=== PATIENT | female | born 1980 | race Caucasian/White ===

== ENCOUNTER 2017-05-10 18:28 | Emergency (ER) | payer MEDICAID ==
[~2017-05-10] VITALS: Ht 167.6 cm; Wt 79.0 kg
[2017-05-10 18:31] VITALS: BP 137/79
[2017-05-10] MEDS ORDERED: DEXAMETHASONE 4 MG TABLET ONE (19:16)
[2017-05-10] MEDS ORDERED: DEXAMETHASONE 4 MG TABLET PO ONE (19:30)
== END 2017-05-10 19:29 | disposition home or self-care (01) ==
LOC: ED 19:20
DX: H66.92 Otitis media, unspecified, left ear (principal); J03.00 Acute streptococcal tonsillitis, unspecified
CPT/HCPCS: 99283

== ENCOUNTER 2019-04-11 20:50 | Emergency (ER) | payer MEDICAID ==
[~2019-04-11] VITALS: Ht 167.6 cm; Wt 69.0 kg
--- NOTE | 2019-04-11 21:14 | NUR ---
THIS IS A 39 YO FEMALE COMING IN FOR VAGINAL SPOTTING AND CRAMPING STARTING TODAY. PATIENT STATES "A COUPLE WEEKS AGO I HAD AN INCONCLUSIVE TEST, THEN 5 DAYS AGO I HAD A POSITIVE ONE". PATIENT IS A WITH 9 PREVIOUS MISCARRIAGES. PATIENT IS A&OX4, DENIES N/V, NO ACUTE DISTRESS, VSS AT THIS TIME, CALL LIGHT IN REACH, DENIES NEEDS AT THIS TIME.
[2019-04-11 21:46] LABS: MEAN CORPUSCULAR HEMOGLOBIN 18.8 pg (27.0-34.8); MEAN CORPUSCULAR VOLUME 65.7 fL (80-100); MEAN PLATELET VOLUME 8.1 fL (7.4-10.4); PLATELET COUNT 388 x10^3/uL (130-400); RED BLOOD COUNT 3.51 x10^6/uL (3.82-5.3); RED CELL DISTRIBUTION WIDTH 20.6 % (9.6-15.2)
[2019-04-11 21:49] LABS: MEAN CORPUSCULAR HGB CONC 28.6 g/dL (32.4-35.8)
[2019-04-11 21:53] LABS: ALBUMIN 3.5 g/dL (3.4-5.0); ANION GAP 5 mmol/L (5-15); CALCIUM 8.5 mg/dL (8.5-10.1); CHLORIDE 109 mmol/L (98-107); CREATININE 0.69 mg/dL (0.55-1.02)
[2019-04-11 22:08] LABS: MD YES
[2019-04-11 22:12] LABS: EOS#(MANUAL) 0.14 x10^3/uL (0.0-0.4); EOS% (MANUAL) 2 % (1-7); LYMPH#(MANUAL) 2.31 x10^3/uL (1-3.4); LYMPHS% (MANUAL) 34 % (22-44); MONOS#(MANUAL) 0.41 x10^3/uL (0.3-2.7); MONOS% (MANUAL) 6 % (2-9); SEG#(MANUAL) 3.94 x10^3/uL (1.8-6.8); SEGS% (MANUAL) 58 % (42-75)
[2019-04-11 22:13] LABS: ANISOCYTOSIS 2+; HYPOCHROMIA 2+; POLYCHROMASIA 1+
[2019-04-11 22:14] LABS: <PLATELET ESTIMATE> ADEQUATE; <PLT MORPHOLOGY> NORMAL PLT MORPH
--- NOTE | 2019-04-11 22:15 | NUR ---
BILATER AC IV'S PLACED DUE TO LOW HGB. PATIENT TO BE GOING TO CT Addendum: 04/11/19 at 2303 by WINDY CORRECTION: PT TO BE GOING TO US
--- NOTE | 2019-04-11 22:25 | NUR ---
PT TO CT Addendum: 04/11/19 at 2303 by WINDY CORRECTION: PATIENT TO ULTRASOUND
[2019-04-11 23:56] VITALS: BP 118/66
[2019-04-11 23:59] VITALS: BP 118/66
--- NOTE | 2019-04-12 00:02 | NUR ---
2 RN CHECK BLOOD TRANSFUSION WITH ERIC Cuellar RN. TRANSFUSION STARTING
[2019-04-12 00:17] VITALS: BP 119/63
--- NOTE | 2019-04-12 00:18 | NUR ---
NO CHANGE IN VITAL SIGNS, RBC INFUSION RATE INCREASED. PATIENT RESTINGCOMFORTABLY, NAD, DENIES NEEDS AT THIS TIME
[2019-04-12 00:45] VITALS: BP 131/67
--- NOTE | 2019-04-12 00:47 | NUR ---
NO CHANGE IN VITAL SIGNS, NAD, BLOOD TRANSFUSION RUNNING, CALL LIGHT IN REACH, FAMILY IN ROOM, DENIES NEEDS AT THIS TIME
--- NOTE | 2019-04-12 00:58 | NUR ---
ASSUMED CARE OF PATIENT. PATIENT RESTING IN ROOM. BLOOD TRANSFUSION GOING. NO ACUTE DISTRESS NOTED. VS STABLE[facility] IN [facility]. WILL CONTINUE TO MONITOR.
[2019-04-12 01:24] VITALS: BP 119/60
--- NOTE | 2019-04-12 01:47 | NUR ---
PATIENT DECLINED TO STAY FOR POST BLOOD TRANSFUSION VS. PT REPORTS SHE NO LONGER WANTS TO STAY. DR GUEVARA AWARE. VS STABLE. EDUCATION GIVEN. PT DISCHARGED PER DR GUEVARA.
[2019-04-12 01:48] VITALS: BP 125/63
== END 2019-04-12 01:53 | disposition home or self-care (01) ==
LOC: ED 23:52
DX: D50.0 Iron deficiency anemia secondary to blood loss (chronic) (principal); N93.9 Abnormal uterine and vaginal bleeding, unspecified; F17.200 Nicotine dependence, unspecified, uncomplicated
CPT/HCPCS: 36430; 76830; 80048; 82040; 84702; 85025; 86850; 86900; 86923; 99285; P9016

== ENCOUNTER 2019-04-25 21:13 | Emergency (ER) | payer MEDICAID ==
[~2019-04-25] VITALS: Ht 167.6 cm; Wt 71.1 kg
[2019-04-25 21:19] VITALS: BP 141/78
[2019-04-25] MEDS ORDERED: HYDROcodone/APAP 5/325 TABLET PO ONE (22:00)
[2019-04-25] MEDS ORDERED: HYDROcodone/APAP 5/325 TABLET ONE (22:04)
[2019-04-25 22:11] LABS: MEAN CORPUSCULAR HEMOGLOBIN 23.4 pg (27.0-34.8); MEAN CORPUSCULAR HGB CONC 30.6 g/dL (32.4-35.8); MEAN CORPUSCULAR VOLUME 76.6 fL (80-100); PLATELET COUNT 324 x10^3/uL (130-400); RED BLOOD COUNT 4.25 x10^6/uL (3.82-5.3); RED CELL DISTRIBUTION WIDTH 35.1 % (9.6-15.2)
[2019-04-25 22:12] LABS: MICROSCOPIC NOT IND
--- NOTE | 2019-04-25 22:13 | NUR ---
THIS IS A 39 YO FEMALE COMING IN FOR DIZZINESS AND LIGHTHEADED FOR THE PAST DAY. PATIENT WAS SEEN HERE TWO WEEKS AGO FOR A VAGINAL BLEED WITH DIZZINES AND LIGHTHEADEDNESS WELL. PATIENT RECEIVED BLOOD TRANSFUSION AT LAST VISIT. PATIENT DENIES SOB, DENIES CP. PATIENT PLACED ON ASSISTANT DRAFTER, NSR NOTED, CONTINUOUS SPO2 AT 97%, CYCLE BP Q1HR. CALL LIGHT IN REACH, DENIES NEEDS AT THIS TIME. UA COLLECTED.
[2019-04-25 22:15] LABS: CULTURE INDICATED? NO
--- NOTE | 2019-04-25 22:20 | NUR ---
PATIENT MEDICATED PER EMAR. TOLERATED WELL.
[2019-04-25 22:24] LABS: ALBUMIN 3.7 g/dL (3.4-5.0); ANION GAP 7 mmol/L (5-15); CALCIUM 9.1 mg/dL (8.5-10.1); CHLORIDE 106 mmol/L (98-107); CREATININE 0.67 mg/dL (0.55-1.02)
[2019-04-25 22:31] LABS: BASOPHILS # (AUTO) 0.03 x10^3/uL (0-0.1); BASOPHILS % (AUTO) 0 % (0-1); EOSINOPHILS # (AUTO) 0.13 x10^3/uL (0-0.4); EOSINOPHILS % (AUTO) 2 % (1-7); LYMPHOCYTES % (AUTO) 21 % (22-44); MD MORPH REVIEW ONLY; MONOCYTES % (AUTO) 9 % (2-9); NEUTROPHILS # (AUTO) 6.16 x10^3/uL (1.8-6.8); NEUTROPHILS % (AUTO) 68 % (42-75)
[2019-04-25 22:32] LABS: ANISOCYTOSIS 2+
[2019-04-25 22:33] LABS: OVALOCYTES 1+; POLYCHROMASIA 1+; TARGET CELLS 1+
[2019-04-25 22:34] LABS: HYPOCHROMIA 1+; MICROCYTOSIS 1+
[2019-04-25 22:35] LABS: <PLATELET ESTIMATE> ADEQUATE; <PLT MORPHOLOGY> NORMAL PLT MORPH
--- NOTE | 2019-04-25 23:00 | NUR ---
TO ROOM TO DISCUSS RESULTS AND DISPO
--- NOTE | 2019-04-25 23:49 | NUR ---
Patient/Caregiver given discharge instructions and they have confirmed that they understand the instructions. Patient ambulatory with steady gait.
== END 2019-04-25 23:50 | disposition home or self-care (01) ==
LOC: ED 22:26
DX: S39.012A Strain of muscle, fascia and tendon of lower back, initial encounter (principal); D63.8 Anemia in other chronic diseases classified elsewhere; K08.89 Other specified disorders of teeth and supporting structures; D25.9 Leiomyoma of uterus, unspecified; N92.0 Excessive and frequent menstruation with regular cycle; F17.210 Nicotine dependence, cigarettes, uncomplicated; X58.XXXA Exposure to other specified factors, initial encounter; Y93.89 Activity, other specified; Y92.89 Other specified places as the place of occurrence of the external cause; Y99.8 Other external cause status
CPT/HCPCS: 36415; 80048; 81003; 82040; 84703; 85025; 86850; 86900; 99283; 99406; 99407

== ENCOUNTER 2019-08-30 14:49 | Emergency (ER) | payer MEDICAID ==
[~2019-08-30] VITALS: Ht 167.6 cm; Wt 65.5 kg
[2019-08-30 15:05] VITALS: BP 138/74
--- NOTE | 2019-08-30 15:21 | NUR ---
BREAK RN: PT PRESENTED TO ED D/T BILATERAL BUTTOCK "SORES." PT STATES "SORES APPEARED" TWO WEEK AGO. +PAINFUL +ITCHY.
--- NOTE | 2019-08-30 16:16 | NUR ---
ASSUMED PRIMARY CARE OF PT. PT AMBULATED TO RESTROOM WITH A STEADY GAIT.
--- NOTE | 2019-08-30 16:22 | NUR ---
PT DC HOME IN A STABLE CONDITION. DC INSTRUCTIONS WERE DISCUSSED WITH PT. PT VERBALIZED UNDERSTANDING. NO FURTHER QUESTIONS OR CONCERNS WERE EXPRESSED AT THAT TIME. PT AMBULATED OUT OF ED WITH A STEADY GAIT.
== END 2019-08-30 16:24 | disposition home or self-care (01) ==
LOC: ED 16:13
DX: L03.312 Cellulitis of back [any part except buttock and flank] (principal); R21 Rash and other nonspecific skin eruption; Z90.89 Acquired absence of other organs
CPT/HCPCS: 99283

== ENCOUNTER 2020-01-09 14:26 | Emergency (ER) | payer MEDICAID ==
[~2020-01-09] VITALS: Ht 167.6 cm; Wt 69.7 kg
[2020-01-09 14:28] VITALS: BP 108/63
[2020-01-09] MEDS ORDERED: HYDROcodone/APAP 5/325 TABLET ONE (14:51)
[2020-01-09] MEDS ORDERED: LIDOCAINE 1%-EPI 1:100K, 20ML ONE (14:51)
[2020-01-09] MEDS ORDERED: LIDOCAINE 1%-EPI 1:100K, 20ML SQ ONE (15:00)
[2020-01-09] MEDS ORDERED: HYDROcodone/APAP 5/325 TABLET PO ONE (15:00)
--- NOTE | 2020-01-09 16:30 | NUR ---
Patient given discharge instructions and Rx, they have confirmed that they understand the instructions. Patient ambulatory with steady gait.
== END 2020-01-09 16:31 | disposition home or self-care (01) ==
LOC: ED 15:04
DX: L02.412 Cutaneous abscess of left axilla (principal); F17.210 Nicotine dependence, cigarettes, uncomplicated
CPT/HCPCS: 10060; 99283; 99406; J3490